=== PATIENT | female | born 1995 | race Caucasian/White ===

== ENCOUNTER 2019-12-08 08:15 | Inpatient (IN) | payer SELFPAY ==
[~2019-12-08] VITALS: Ht 152.4 cm; Wt 68.9 kg
[2019-12-08] MEDS ORDERED: PREN-380 PO (08:35)
[2019-12-08] MEDS ORDERED: AMPICILLIN 2,000 MG in NACL 0.9% MINI-BAG PLUS 100 ML IV SCH (08:35)
[2019-12-08] MEDS ORDERED: PROMETHAZINE 25 MG/ML VIAL IVP PRN (08:35)
[2019-12-08] MEDS ORDERED: CARBOPROST 250 MCG/ML AMP IM PRN (08:35)
[2019-12-08] MEDS ORDERED: LACTATED RINGERS 1,000 ML IV SCH (08:35)
[2019-12-08] MEDS ORDERED: METHYLERGONOVINE 0.2 MG/ML AMP IM PRN ×2 (08:35→20:00)
[2019-12-08] MEDS ORDERED: NALBUPHINE 10 MG/ML AMP IVP PRN (08:35)
[2019-12-08] MEDS ORDERED: AMPICILLIN 2,000 MG VIAL ONE (08:58)
[2019-12-08] MEDS ORDERED: fentaNYL 0.05 MG/ML VIAL IVP SCH (09:07)
[2019-12-08 10:20] LABS: BASOPHILS % (AUTO) 0.2 % (0.0-2.0); EOSINOPHILS % (AUTO) 0.2 % (0.0-4.0); HEMATOCRIT 40.7 % (36-48); HEMOGLOBIN 13.3 g/dL (12.0-16.0); LYMPHOCYTES # (AUTO) 1.2 K/uL (2.5-16.5); LYMPHOCYTES % (AUTO) 12.3 % (20.5-51.1); MEAN CORPUSCULAR HEMOGLOBIN 31 pg (27-31); MEAN CORPUSCULAR HGB CONC 33 g/dL (33-37); MEAN CORPUSCULAR VOLUME 94.6 fL (80-94); MONOCYTES # (AUTO) 0.3 K/uL (0.8-1.0); MONOCYTES % (AUTO) 3.5 % (1.7-9.3); NEUTROPHILS % (AUTO) 83.8 % (42.2-75.2); PLATELET COUNT (AUTO) 220 K/uL (140-450); RED CELL DISTRIBUTION WIDTH 14.3 % (11.6-13.7); WHITE BLOOD COUNT (AUTO) 9.5 K/uL (4.8-10.8)
[2019-12-08 10:26] LABS: APPEARANCE,URINE CLEAR (CLEAR); BILIRUBIN,URINE NEGATIVE (NEGATIVE); BLOOD, URINE 3+ (NEGATIVE); COLOR,URINE YELLOW (YELLOW); LEUKOCYTE ESTERASE ,URINE TRACE (NEGATIVE); NITRITE, URINE NEGATIVE (NEGATIVE); PH,URINE 6.5 (5.0-9.0); UGLUCOSE NEGATIVE (NEGATIVE)
[2019-12-08 10:33] LABS: BARBITURATE, URINE NEGATIVE ng/ml (NEG <=200); BENZODIAZEPINE, URINE NEGATIVE ng/mL (NEG <=200); CANNABINOID, URINE NEGATIVE ng/mL (NEG <=50); COCAINE, URINE NEGATIVE ng/mL (NEG <=300); OPIATE, URINE NEGATIVE ng/mL (NEG <=2000); PHENCYCLIDINE SCREEN,URINE NEGATIVE ng/mL (NEG <=25)
[2019-12-08] MEDS ORDERED: EPIDURAL KEYS MC ONE (10:44)
[2019-12-08] MEDS ORDERED: BUPIVACAINE 0.125%/NS PREMIX 250 ML ONE (10:55)
[2019-12-08] MEDS ORDERED: AMPICILLIN 1,000 MG in NACL 0.9% MINI-BAG PLUS 50 ML IV SCH (12:00)
[2019-12-08] MEDS ORDERED: TERBUTALINE 1 MG/ML VIAL SUBQ ONE (12:21)
[2019-12-08] MEDS ORDERED: TERBUTALINE 1 MG/ML VIAL SUBQ SCH (12:40)
[2019-12-08] MEDS ORDERED: PHENYLEPHRINE 10 MG/ML VIAL IV SCH (13:10)
[2019-12-08] MEDS ORDERED: AMPICILLIN 1,000 MG VIAL ONE (13:17)
[2019-12-08] MEDS ORDERED: OXYTOCIN 20 UNITS in LACTATED RINGERS 1,000 ML IV SCH (14:15)
[2019-12-08] MEDS ORDERED: OXYTOCIN 20 UNITS/LR PREMIX 1,000 ML IV ONE (14:16)
[2019-12-08 14:25] VITALS: BP 126/79
[2019-12-08] MEDS ORDERED: METHYLERGONOVINE 0.2 MG TAB PO PRN (20:00)
[2019-12-08] MEDS ORDERED: TEMAZEPAM 15 MG CAP PO PRN (20:00)
[2019-12-08] MEDS ORDERED: IBUPROFEN 800 MG TAB PO PRN (20:00)
[2019-12-08] MEDS ORDERED: HYDROcodone/APAP 5/325 MG 1 TAB TAB PO PRN (20:00)
[2019-12-08] MEDS ORDERED: OXYTOCIN 10 UNITS/ML VIAL IM PRN (20:00)
[2019-12-08] MEDS ORDERED: oxyCODONE/APAP 5/325 MG 1 TAB TAB PO PRN (20:00)
[2019-12-08] MEDS ORDERED: BENZOCAINE/MENTHOL 20%-0.5% 60 GM CAN TP PRN (20:00)
[2019-12-08] MEDS ORDERED: DOCUSATE SOD/SENNA 50/8.6 MG 1 TAB PO SCH (21:00)
[2019-12-09 06:32] LABS: HEMATOCRIT 33.8 % (36-48); HEMOGLOBIN 11.3 g/dL (12.0-16.0)
--- NOTE | 2019-12-09 08:39 | NUR ---
PATIENT HAS BEEN SCREENED AND CATEGORIZED LOW NUTRITION RISK. PATIENT WILL BE SEEN WITHIN 7 DAYS OF ADMISSION. 12/15/19 VALENTIN IGNACIO MBA,RD
[2019-12-09 09:10] LABS: HEPATITIS B SURFACE ANTIGEN Negative (Negative)
[2019-12-09] MEDS ORDERED: IBUP-2213 PO (20:22)
[2019-12-09] MEDS ORDERED: FERR325E14 PO (20:23)
== END 2019-12-09 22:43 | disposition home or self-care (01) | DRG 807 ==
LOC: MFCC 08:15
PROVIDERS: ADMIT Obstetrics & Gynecology; ATTEND Obstetrics & Gynecology
PROC: 10E0XZZ Delivery of Products of Conception, External Approach (ICD-10-PCS; principal; 2019-12-08)
PROC: 10907ZC Drainage of Amniotic Fluid, Therapeutic from Products of Conception, Via Natural or Artificial Opening (ICD-10-PCS; 2019-12-08)
PROC: 0W8NXZZ Division of Female Perineum, External Approach (ICD-10-PCS; 2019-12-08)
PROC: 00HU33Z Insertion of Infusion Device into Spinal Canal, Percutaneous Approach (ICD-10-PCS; 2019-12-08)
PROC: 3E0R3BZ Introduction of Anesthetic Agent into Spinal Canal, Percutaneous Approach (ICD-10-PCS; 2019-12-08)
DX: O60.14X0 Preterm labor third trimester with preterm delivery third trimester, not applicable or unspecified (principal); Z37.0 Single live birth; O24.429 Gestational diabetes mellitus in childbirth, unspecified control; O69.81X0 Labor and delivery complicated by cord around neck, without compression, not applicable or unspecified; Z3A.35 35 weeks gestation of pregnancy
CPT/HCPCS: 36415; 51702; 59409; 80305; 81001; 85018; 85025; 86592; 86762; 86886; 86900; 86901; 87086; 87186; 87340; 87653-90; J0290; J2300; J2370; J2590; J3105; J3490; J7120